=== PATIENT | female | born 2000 | race Caucasian/White ===

== ENCOUNTER 2020-12-05 12:45 | Inpatient (IN) | payer MEDICAID ==
[~2020-12-05] VITALS: Ht 152.4 cm; Wt 83.0 kg
[2020-12-05] VITALS (20 sets, daily range): BP systolic 106–127; BP diastolic 61–91
[2020-12-05] MEDS ORDERED: MINERAL OIL CONCENTRATE 99.9% 15 ML UDC TOP PRN (13:15)
[2020-12-05] MEDS ORDERED: CATHETER FLUSH 10 ML SYR IV SCH (14:00)
[2020-12-05] MEDS: D5 LR IV SOLUTION 1,000 ML IV SCH ×2 (14:03→19:14)
[2020-12-05 14:12] LABS: ALBUMIN 3.4 GM/DL (3.2-4.5); POTASSIUM 3.7 MMOL/L (3.6-5.0)
[2020-12-05 14:13] LABS: CALCIUM 9.1 MG/DL (8.5-10.1)
[2020-12-05 14:15] LABS: TOTAL PROTEIN 6.3 GM/DL (6.4-8.2)
[2020-12-05 14:16] LABS: BASOPHILS % (AUTO) 0 % (0-10); BILIRUBIN,TOTAL 0.4 MG/DL (0.1-1.0); EOSINOPHILS # (AUTO) 0.1 10^3/uL (0.0-0.3); EOSINOPHILS % (AUTO) 2 % (0-10); HEMATOCRIT 39 % (35-52); LYMPHOCYTES # (AUTO) 1.8 10^3/uL (1.0-4.0); LYMPHOCYTES % (AUTO) 23 % (12-44); MEAN CORPUSCULAR HEMOGLOBIN 32 pg (25-34); MEAN CORPUSCULAR HGB CONC 33 g/dL (32-36); MEAN CORPUSCULAR VOLUME 95 fL (80-99); MEAN PLATELET VOLUME 10.7 fL (9.0-12.2); MONOCYTES # (AUTO) 0.6 10^3/uL (0.0-1.0); MONOCYTES % (AUTO) 8 % (0-12); NEUTROPHILS # (AUTO) 5.1 10^3/uL (1.8-7.8); NEUTROPHILS % (AUTO) 66 % (42-75); PLATELET COUNT 193 10^3/uL (130-400); WHITE BLOOD COUNT 7.8 10^3/uL (4.3-11.0)
[2020-12-05 14:18] LABS: CREATININE SERUM 0.59 MG/DL (0.60-1.30)
[2020-12-05 14:19] LABS: URINE CREATININE FOR RATIO 21 MG/DL (30-125); URINE PROTEIN FOR RATIO ONLY < 6 MG/DL (6-12)
[2020-12-05 14:21] LABS: URIC ACID 5.1 MG/DL (2.6-7.2)
--- NOTE | 2020-12-05 14:24 | History & Physical-OB ---
OB - Chief Complaint & HPI Date/Time Date of Admission: Date of Admission: Dec 05, 2020 at 12:45 Date seen by a Provider: Dec 05, 2020 Time Seen by a Provider: 13:30 Chief Complaint/History OB-Reason for Admission/Chief: Obstetrical Complication Hx : 1 Hx Para: 0 Expected Date of Delivery: Dec 19, 2020 Gestational Age in Weeks: 38 Gestational Age in Days: 0 Indication for induction: medical complication History of Labs A pos, antibody neg, RNI. HIV/HepB/RPR NR. GC/chlamydia neg. 1 hour glucola elevated, 3 hour normal. GBS negative. Other G1 at 38 weeks, seen in office on 12/03 and had swelling and increased blood pressure (134/90, also had BP 122/90 at visit 11/12), preeclampsia labs drawn and were unremarkable except for urine protein/creatinine ratio 0.357, pt brought back to clinic at time of results and had BP 142/90, discussed diagnosis of preeclampsia and sent to L&D for induction. Allergies and Home Medications Allergies Coded Allergies: No Known Drug Allergies (Unverified , 12/05/20) Home Medications Cetirizine HCl 10 Mg Tablet, 10 MG PO DAILY, (Reported) Last Action: New Order Famotidine 20 Mg Tablet, 20 MG PO HS PRN for HEARTBURN, (Reported) Last Action: New Order Patient Home Medication List Home Medication List Reviewed: Yes OB - History Hx of Present Ultrasounds: Abnormal US findings (mild prominence of left renal pelvis, followed and stable below 10 mm) Obstetrical Complications: Pre-eclampsia Information Induced Hypertension: Yes Maternal Gestational Diabetes: No Hemorrhage: No Obstetrical History Hx : 1 Hx Para: 0 Hx # Term Pregnancies: 0 Hx # Pregnancies: 0 Number of Living Children: 0 Hx Termination: No Hx Multiple Gestation: No Hx Ectopic : No Hx Stillbirth: No Hx Complication: Yes Hx Induced Hypertens: Yes Hx Maternal Gestational Diabet: No Hx Hemorrhage: No Delivery History Hx Dystocia: No Hx Forceps Assisted Delivery: No Hx Vacuum Extraction Assisted: No Hx Placenta Abnormality: No Hx Distress: No Hx Large For Gestational Age I: No Hx Small for Gestational Age I: No Hx Section: No Hx Vaginal Delivery Post C-Sec: No Hx Blood Disorders: No Adverse Rxn to Tranfusion: No Patient Past Medical History PMHx: Denies SurgHx: Denies Social History/Family History Alcohol Use: Denies Use Recreational Drug Use: No (previous marijuana use before ) Smoking Cessation: Never smoker Immunizations Tetanus Booster (TDap): Less than 5yrs Rubella: not immune RPR/VDRL: Negative GBS Status: Negative HBsAG: Negative OB - Admission Exam Physical Exam HEENT: NCAT Abdomen: Non tender Extremities: Edema Cervical Dilatation: 1cm Effacement: 0% Station: -3 Membranes: Intact Heart Rate: 140's Accelerations: Accelerations Present Decelerations: No Decelerations Short Term Variability: Present Contractions on Admission: None Phillips Scoring Tool (Modified) Dilation (cm): 1-2cm (1) Effacement (%): 0-30% (0) Descent/Station: -3 (0) Cervix Consistency: Medium(1) Cervix Position: Anterior (2) Add 1 point for: Pre-eclampsia (1) Subtract 1 point for: Nulliparity (-1) Phillips Score: 4 Labs Laboratory Tests Test 12/05/20 13:20 12/05/20 13:55 Range/Units Sodium Level 140 135-145 MMOL/L Potassium Level 3.7 3.6-5.0 MMOL/L Chloride Level 109 H 98-107 MMOL/L Glucose Level 83 70-105 MG/DL Calcium Level 9.1 8.5-10.1 MG/DL Corrected Calcium 9.6 8.5-10.1 MG/DL Total Protein 6.3 L 6.4-8.2 GM/DL Albumin 3.4 3.2-4.5 GM/DL OB - Assessment/Plan/Diagnosis Assessment Admission Dx Term intrauterine 38 weeks gestation Preeclampsia without severe features GBS neg Rubella non-immune Admission Status: Inpatient Order (span 2 midnights) Reason for Inpatient Admission: Induction, labor, delivery and course Plan Plan: Induction Induction Method: per Misoprostol Protocol Problems: (1) Preeclampsia Qualifiers: Qualified Codes: O14.93 - Unspecified pre-eclampsia, third trimester KIRSTIN MARTINO MD Dec 05, 2020 14:24
[2020-12-05] MEDS ORDERED: CETI10TA49 PO (14:29)
[2020-12-05] MEDS ORDERED: PREN-142 PO (14:29)
[2020-12-05] MEDS ORDERED: FAMO-119 PO (14:29)
[2020-12-05] MEDS ORDERED: fentaNYL 2 mcg/ml BUPIVA 0.125 100 ML ONE (22:19)
[2020-12-05] MEDS ORDERED: BUPIVACAINE 0.25% 30 ML (SENSORCAINE) VIAL ONE (22:35)
[2020-12-05] MEDS ORDERED: fentaNYL INJ 100 MCG/2 ML AMP ONE (22:35)
[2020-12-05] MEDS: EPIDURAL (fentaNYL 2 MCG/ML BUPIVA 0.125%)100 ML BAG EPI PRN (23:11)
[2020-12-05] MEDS ORDERED: LACTATED RINGERS 1,000 ML IV SCH (23:15)
[2020-12-05] MEDS ORDERED: METOCLOPRAMIDE INJ 10 MG/2 ML (REGLAN) IV PRN (23:15)
[2020-12-05] MEDS ORDERED: NALOXONE 0.4 MG/ML 1 ML (NARCAN) VIAL IV PRN ×2 (23:15)
[2020-12-05] MEDS ORDERED: ONDANSETRON 4 MG/2 ML (SDV) Z0FRAN IV PRN (23:15)
[2020-12-05] MEDS ORDERED: diphenhydrAMINE 50 MG/ML INJ (BENADRYL) IV PRN (23:15)
[2020-12-06] VITALS (62 sets, daily range): BP systolic 98–133; BP diastolic 55–96
[2020-12-06] MEDS: D5 LR IV SOLUTION 1,000 ML IV SCH ×2 (03:11→11:07)
[2020-12-06] MEDS: EPIDURAL (fentaNYL 2 MCG/ML BUPIVA 0.125%)100 ML BAG EPI PRN (07:59)
[2020-12-06] MEDS ORDERED: LIDOCAINE PF 2% 5 ML (XYLOCAINE) VIAL ONE (10:44)
[2020-12-06] MEDS ORDERED: BUPIVACAINE 0.25% 30 ML (SENSORCAINE) VIAL ONE (11:00)
[2020-12-06] MEDS ORDERED: OXYTOCIN PRE-MIX DRIP 500 ML IV ONE (12:59)
[2020-12-06] MEDS ORDERED: LIDOCAINE/EPI 2% 1:200,00 (XYLOCAINE) 20 ML VIAL ONE (13:01)
--- NOTE | 2020-12-06 14:32 | OB Labor & Delivery Record ---
Vag Delivery Note Vag Delivery Note Date of Delivery: 12/06/20 Preoperative Diagnosis: April Hlal is a (20 /Para 1 / 0, Gestational Age (wks)38with 1 day Postoperative Diagnosis: Same Surgeon: KIRSTIN MARTINO Anesthesia: Epidural Delivery Type: Findings: Viable male , apgars 8/9, weight 7#5 Lacerations: bilateral periurethral, left labial, second degree perineal Intact placenta with 3 vessel cord. Nuchal cord x 1 easily reduced, no body cord or shoulder dystocia Estimated Blood Loss: 250 ml Complications: None Condition: Stable Description of Procedure: The patient is a 20 year old female who presented with preeclampsia. She was admitted and informed consent was obtained and induction of labor begun. Her labor course was unremarkable She progressed to complete dilatation and began to push. She was then set up for delivery. The infant's head was delivered atraumatically in the TRISTNA position. Nuchal x 1 easily reduced, the shoulders and remainder of the 's body were then delivered without difficulty. Upon delivery, the infant was placed on maternal abdomen. The cord was doubly clamped and cut and the was handed off to the pediatric staff. An intact placenta with 3- vessel cord delivered via Andre and there was found to be minimal bleeding.~ Vigorous fundal massage was performed and the fundus was found to be firm. IV oxytocin was given. Examination of the vagina and perineum revealed a second degree perineal laceration repaired in the usual fashion with 3-0 vicryl suture. The right periurethral laceration was repaired in simple running fashion with 3- 0 rapide and the left labial (through skin) was repaired in simple running fashion with 3-0 rapide. Following the repair, sponge, instrument and needle counts were correct. Mom and baby were both in stable condition in the labor suite. Vitals - Labs Vital Signs - I&O Vital Signs Date Time Temp Pulse Resp B/P (MAP) Pulse Ox O2 Delivery O2 Flow Rate FiO2 12/06/20 11:55 88 18 121/76 (91) Room Air 12/06/20 11:40 88 18 109/70 (83) Room Air 12/06/20 11:20 97 18 109/70 (83) Room Air 12/06/20 11:05 37.8 87 20 111/69 (83) Room Air 12/06/20 10:50 84 18 111/71 (84) Room Air 12/06/20 10:35 84 18 107/66 (80) Room Air 12/06/20 10:20 92 18 111/68 (82) Room Air 12/06/20 10:05 86 18 111/59 (76) Room Air 12/06/20 09:50 86 18 114/59 (77) Room Air 12/06/20 09:35 85 18 111/68 (82) Room Air 12/06/20 09:20 83 18 110/67 (81) Room Air 12/06/20 09:05 93 18 116/61 (79) Room Air 12/06/20 08:50 96 18 111/62 (78) Room Air 12/06/20 08:35 87 18 108/60 (76) Room Air 12/06/20 08:25 90 18 110/60 (77) Room Air 12/06/20 08:10 80 18 104/58 (73) Room Air 12/06/20 07:50 76 18 101/57 (72) Room Air 12/06/20 07:40 82 18 107/59 (75) Room Air 12/06/20 07:20 86 18 102/58 (73) Room Air 12/06/20 07:00 87 18 98/56 (70) Room Air 12/06/20 06:45 94 18 114/64 (81) Room Air 12/06/20 06:30 82 18 109/57 (74) Non Rebreather 15.00 12/06/20 06:15 89 18 112/63 (79) Non Rebreather 15.00 12/06/20 06:00 85 18 111/67 (82) Non Rebreather 15.00 12/06/20 05:45 95 18 108/65 (79) Non Rebreather 15.00 12/06/20 05:30 97 18 108/60 (76) Room Air 12/06/20 05:15 96 18 102/58 (73) Room Air 12/06/20 05:00 37.7 95 18 106/56 (73) Room Air 12/06/20 04:45 93 18 106/55 (72) Room Air 12/06/20 04:30 87 18 107/55 (72) Room Air 12/06/20 04:15 86 18 105/57 (73) Room Air 12/06/20 04:00 86 18 106/55 (72) Room Air 12/06/20 03:45 85 18 103/59 (74) Room Air 12/06/20 03:30 89 18 111/65 (80) Room Air 12/06/20 03:15 82 18 111/56 (74) 96 Room Air 12/06/20 03:00 84 18 108/60 (76) 95 Room Air 12/06/20 02:45 90 18 105/59 (74) 96 Room Air 12/06/20 02:30 85 18 107/57 (74) 96 Room Air 12/06/20 02:15 93 18 105/60 (75) 96 Room Air 12/06/20 02:00 83 18 107/60 (76) 96 Room Air 12/06/20 01:45 85 18 108/61 (77) 96 Room Air 12/06/20 01:30 85 18 109/60 (76) 96 Room Air 12/06/20 01:15 82 18 106/59 (75) 97 Room Air 12/06/20 01:00 83 18 111/62 (78) 97 Room Air 12/06/20 00:45 80 18 109/62 (78) 96 Room Air 12/06/20 00:30 84 18 110/60 (77) 97 Room Air 12/06/20 00:15 83 18 109/65 (80) 97 Room Air 12/06/20 00:00 85 18 111/64 (80) 97 Room Air 12/05/20 23:45 83 18 115/66 (82) 97 Room Air 12/05/20 23:30 85 18 121/73 (89) 99 Room Air 12/05/20 23:20 89 18 117/69 (85) 98 Room Air 12/05/20 23:15 85 18 124/71 (88) 99 Room Air 12/05/20 23:10 89 18 118/66 (83) 97 Room Air 12/05/20 23:05 85 18 115/64 (81) 97 Room Air 12/05/20 23:01 90 18 115/61 (79) 98 Room Air 12/05/20 23:00 37.5 101 18 121/73 (89) Room Air 12/05/20 22:57 87 18 125/73 (90) 99 Room Air 12/05/20 22:52 88 18 122/73 (89) 98 Room Air 12/05/20 22:49 97 18 121/80 (94) 100 Room Air 12/05/20 22:46 98 18 124/81 (95) 99 Room Air 12/05/20 22:43 105 18 121/91 (101) 99 Room Air 12/05/20 22:40 102 18 115/85 (95) 99 Room Air 12/05/20 22:00 114 18 127/79 (95) Room Air 12/05/20 21:00 93 18 110/70 (83) Room Air 12/05/20 20:00 106 18 116/82 (93) Room Air 12/05/20 18:01 105 20 106/74 (85) Room Air 12/05/20 17:01 37.1 104 20 118/77 (91) Room Air I & O 12/06/20 07:00 Intake Total 1000 ml Balance 1000 ml KIRSTIN MARTINO MD Dec 06, 2020 14:32
[2020-12-06] MEDS ORDERED: BENZOCAINE/MENTHOL (DERMOPLAST) 56 ML CAN TP ONE (15:30)
[2020-12-06] MEDS ORDERED: ACETAMINOPHEN 500 MG TAB (TYLENOL) PO PRN (16:30)
[2020-12-06] MEDS ORDERED: BENZOCAINE/MENTHOL (DERMOPLAST) 56 ML CAN TP PRN (16:30)
[2020-12-06] MEDS ORDERED: WITCH HAZEL(TUCKS) 40 EA JAR TOP PRN (16:30)
[2020-12-06] MEDS ORDERED: MEASLES,MUMPS,RUBELLA 1 EA INJ SQ ONE (16:30)
[2020-12-06] MEDS ORDERED: OXYTOCIN PRE-MIX DRIP 500 ML IV SCH (16:30)
[2020-12-06] MEDS: IBUPROFEN 600 MG (MOTRIN) TAB PO SCH (17:17)
[2020-12-06] MEDS: DOCUSATE SODIUM 100 MG (COLACE) CAP PO SCH (19:52)
[2020-12-06] MEDS ORDERED: CATHETER FLUSH 10 ML SYR IV SCH (22:00)
[2020-12-07 00:44] VITALS: BP 112/72
[2020-12-07] MEDS: IBUPROFEN 600 MG (MOTRIN) TAB PO SCH ×5 (00:46→23:33)
[2020-12-07 04:10] VITALS: BP 118/60
[2020-12-07 06:40] LABS: BASOPHILS % (AUTO) 0 % (0-10); EOSINOPHILS # (AUTO) 0.2 10^3/uL (0.0-0.3); EOSINOPHILS % (AUTO) 2 % (0-10); HEMATOCRIT 36 % (35-52); HEMOGLOBIN 11.8 g/dL (11.5-16.0); LYMPHOCYTES # (AUTO) 2.9 10^3/uL (1.0-4.0); LYMPHOCYTES % (AUTO) 22 % (12-44); MEAN CORPUSCULAR HEMOGLOBIN 31 pg (25-34); MEAN CORPUSCULAR HGB CONC 33 g/dL (32-36); MEAN CORPUSCULAR VOLUME 96 fL (80-99); MEAN PLATELET VOLUME 10.3 fL (9.0-12.2); MONOCYTES % (AUTO) 7 % (0-12); NEUTROPHILS % (AUTO) 68 % (42-75); PLATELET COUNT 180 10^3/uL (130-400); WHITE BLOOD COUNT 13.1 10^3/uL (4.3-11.0)
[2020-12-07] MEDS: DOCUSATE SODIUM 100 MG (COLACE) CAP PO SCH ×2 (10:05→23:33)
[2020-12-07 10:08] VITALS: BP 119/72
--- NOTE | 2020-12-07 12:20 | Anesthesia-Regional Post-Op ---
Regional Patient Condition Mental Status: Alert, Oriented x3 Circulation: Same as Pre-Op Headache: Absent Sensation: Full Recovery Motor Block: Absent Post Op Complications Complications None Follow Up Care/Instructions Patient Instructions None needed. Anesthesia/Patient Condition Patient is doing well, no complaints, stable vital signs, no apparent adverse anesthesia problems. No complications reported per nursing. KULWANT RODRIGUEZ CRNA Dec 07, 2020 12:20
--- NOTE | 2020-12-07 13:02 | Progress Note ---
Subjective Subjective/Events-last exam Afebrile, feeling pretty well. Admits shortness of breath when she first stands up that does not persist. going well. Denies dizziness. Objective Exam Last Set of Vital Signs Vital Signs Date Time Temp Pulse Resp B/P (MAP) Pulse Ox O2 Delivery O2 Flow Rate FiO2 12/07/20 04:10 36.1 96 18 118/60 (79) 98 Room Air 12/06/20 06:30 15.00 Capillary Refill : I&O Intake and Output 12/07/20 00:00 Intake Total 350 ml Output Total 300 ml Balance 50 ml Intake IV Total 350 ml Output Urine Total 300 ml General: Alert, No Acute Distress Lungs: Clear to Auscultation, Normal Air Movement Heart: Regular Rate Extremities: Other (1+ pitting edema to knees) Neuro: Normal Speech Psych/Mental Status: Mood NL Results/Procedures Lab Laboratory Tests 12/07/20 06:30: White Blood Count 13.1H, Red Blood Count 3.76L, Hemoglobin 11.8, Hematocrit 36, Mean Corpuscular Volume 96, Mean Corpuscular Hemoglobin 31, Mean Corpuscular Hemoglobin Concent 33, Red Cell Distribution Width 12.7, Platelet Count 180, Mean Platelet Volume 10.3, Immature Granulocyte % (Auto) 1, Neutrophils (%) (Auto) 68, Lymphocytes (%) (Auto) 22, Monocytes (%) (Auto) 7, Eosinophils (%) (Auto) 2, Basophils (%) (Auto) 0, Neutrophils # (Auto) 9.0H, Lymphocytes # (Auto) 2.9, Monocytes # (Auto) 1.0, Eosinophils # (Auto) 0.2, Basophils # (Auto) 0.0, Immature Granulocyte # (Auto) 0.1 Assessment/Plan Assessment/Plan (1) Spontaneous vaginal delivery Status: Acute Assessment & Plan: Stable with no anemia, routine care. (2) Preeclampsia Status: Resolved Qualifiers: Qualified Codes: O14.93 - Unspecified pre-eclampsia, third trimester (3) COVID-19 vaccination declined Status: Acute Assessment & Plan: Discussed risks and benefits, she is still considering, but not ready at this time. KIRSTIN MARTINO MD Dec 07, 2020 13:02
[2020-12-07 16:10] VITALS: BP 116/75
[2020-12-07 23:33] VITALS: BP 116/67
[2020-12-08 06:11] VITALS: BP 120/81
[2020-12-08] MEDS: IBUPROFEN 600 MG (MOTRIN) TAB PO SCH ×2 (06:11→12:15)
[2020-12-08] MEDS ORDERED: IBUP-844 PO (08:10)
[2020-12-08 08:51] VITALS: BP 130/85
[2020-12-08] MEDS: DOCUSATE SODIUM 100 MG (COLACE) CAP PO SCH (08:52)
--- NOTE | 2020-12-08 10:34 | Discharge Summary ---
Discharge Summary Hospital Course Problems/Diagnosis: (1) Spontaneous vaginal delivery Status: Acute Assessment & Plan: Stable with no anemia, routine care. (2) Preeclampsia Status: Resolved Resolution Date/Time: 12/07/20 @ 13:01 Qualifiers: Qualified Codes: O14.93 - Unspecified pre-eclampsia, third trimester (3) COVID-19 vaccination declined Status: Acute Assessment & Plan: Discussed risks and benefits, she is still considering, but not ready at this time. Hospital Course Date of Admission: Dec 05, 2020 at 12:45 Admission Diagnosis : Family Physician/Provider: Date of Discharge: 12/08/20 Discharge Diagnosis: See problem list Hospital Course: See problem list Labs and Pending Lab Test: Home Meds Active Ibu (Ibuprofen) 600 Mg Tablet 600 Mg PO Q6HR PRN Reported Zyrtec (Cetirizine HCl) 10 Mg Tablet 10 Mg PO DAILY Vitamin Tablet ( Vit No.124/Iron/FA) 1 Each Tablet 1 Each PO Assessment/Pt DC Instructions Follow up with Dr. Perrin in 6 weeks for visit. Discharge Diet: No Restrictions Activity as Tolerated: Yes (avoid strenuous activity x 6 weeks) Discharge Physical Examination Allergies: Coded Allergies: No Known Drug Allergies (Unverified , 12/05/20) General Appearance: No Apparent Distress, WD/WN Respiratory: Lungs Clear, Normal Breath Sounds Cardiovascular: Regular Rate, Rhythm, No Murmur Extremity: Pedal Edema Neurologic/Psychiatric: Alert, Normal Mood/Affect KIRSTIN PERRIN MD Dec 08, 2020 10:34
[2020-12-08] MEDS ORDERED: MEASLES,MUMPS,RUBELLA 1 EA INJ ONE (12:13)
== END 2020-12-08 14:05 | disposition home or self-care (01) | DRG 807 ==
LOC: LDRP 12:45
PROVIDERS: ADMIT Family Medicine; ATTEND Family Medicine
PROC: 10E0XZZ Delivery of Products of Conception, External Approach (ICD-10-PCS; principal; 2020-12-06)
PROC: 0KQM0ZZ Repair Perineum Muscle, Open Approach (ICD-10-PCS; 2020-12-06)
PROC: 0UQMXZZ Repair Vulva, External Approach (ICD-10-PCS; 2020-12-06)
PROC: 3E0DXGC Introduction of Other Therapeutic Substance into Mouth and Pharynx, External Approach (ICD-10-PCS; 2020-12-06)
DX: O14.94 Unspecified pre-eclampsia, complicating childbirth (principal); Z37.0 Single live birth; Z3A.38 38 weeks gestation of pregnancy; O69.81X0 Labor and delivery complicated by cord around neck, without compression, not applicable or unspecified; O70.1 Second degree perineal laceration during delivery; O71.82 Other specified trauma to perineum and vulva; Z23 Encounter for immunization
CPT/HCPCS: 36415; 80053; 82570; 84156; 84550; 85025; 86850; 86900; 86901; 90707

== ENCOUNTER 2023-02-28 14:04 | Inpatient (IN) | payer BC ==
[2023-02-28] VITALS (38 sets, daily range): BP systolic 87–128; BP diastolic 51–81
[~2023-02-28] VITALS: Ht 152.4 cm; Wt 73.0 kg
[~2023-02-28 14:04] MED LIST: CETI10TA49 PO; FAMO-119 PO; IBUP-844 PO; PREN-142 PO
[2023-02-28 15:06] LABS: BACTERIA,URINE TRACE /HPF; BILIRUBIN,URINE NEGATIVE (NEGATIVE); CLARITY,URINE CLEAR; COLOR,URINE YELLOW; GLUCOSE, URINE (UA) NEGATIVE (NEGATIVE); KETONES,URINE 2+ (NEGATIVE); LEUKOCYTE ESTERASE ,URINE NEGATIVE (NEGATIVE); NITRITE,URINE NEGATIVE (NEGATIVE); PROTEIN,URINE NEGATIVE (NEGATIVE); SQUAMOUS EPITHELIAL CELL,UR RARE /HPF; WBC,URINE RARE /HPF
[2023-02-28] MEDS: LACTATED RINGERS 1,000 ML 1,000 ML IV SCH ×2 (15:51→18:32)
[2023-02-28 15:58] LABS: BASOPHILS % (AUTO) 0 % (0-10); EOSINOPHILS # (AUTO) 0.1 10^3/uL (0.0-0.3); EOSINOPHILS % (AUTO) 1 % (0-10); HEMATOCRIT 38 % (35-52); HEMOGLOBIN 12.8 g/dL (11.5-16.0); LYMPHOCYTES # (AUTO) 1.9 X 10^3 (1.0-4.0); LYMPHOCYTES % (AUTO) 20 % (12-44); MEAN CORPUSCULAR HEMOGLOBIN 32 pg (25-34); MEAN CORPUSCULAR HGB CONC 34 g/dL (32-36); MEAN CORPUSCULAR VOLUME 95 fL (80-99); MEAN PLATELET VOLUME 10.8 fL (9.0-12.2); MONOCYTES # (AUTO) 0.7 X 10^3 (0.0-1.0); MONOCYTES % (AUTO) 7 % (0-12); NEUTROPHILS # (AUTO) 6.8 X 10^3 (1.8-7.8); NEUTROPHILS % (AUTO) 71 % (42-75); PLATELET COUNT 178 10^3/uL (130-400); WHITE BLOOD COUNT 9.6 10^3/uL (4.3-11.0)
--- NOTE | 2023-02-28 17:38 | History & Physical-OB ---
OB - Chief Complaint & HPI Date/Time Date of Admission: Date of Admission: Feb 28, 2023 Date seen by a Provider: Feb 28, 2023 Time Seen by a Provider: 17:05 Chief Complaint/History OB-Reason for Admission/Chief: Hx : 2 Hx Para: 1 Expected Date of Delivery: Mar 14, 2023 Gestational Age in Weeks: 38 Gestational Age in Days: 0 Other reason for admission: at 38w0d came to Labor and Delivery due to contractions starting last night, worse this morning. On arrival, noted to have tachycardia with minimal variability. She reports normal movement, no leaking fluid or bleeding. History of Labs A pos, antibody neg, RI. HIV/hepB/HepC/RPR NR. GC/chlamydia neg. 1 hr glucola neg. GBS pos. Allergies and Home Medications Allergies Coded Allergies: No Known Drug Allergies (Unverified , 12/05/20) Patient Home Medication List Home Medication List Reviewed: Yes Cetirizine HCl (Cetirizine HCl) 10 Mg Tablet, 10 MG PO, (Reported) Entered as Reported by: KIRSTIN MARTINO on 03/01/23124 Last Action: Reviewed Famotidine (Acid Intervention Analyst (FAMOTIDINE)) 20 Mg Tablet, 20 MG PO HS PRN for gerd, (Reported) Entered as Reported by: KIRSTIN MARTINO on 03/01/23124 Last Action: Reviewed Vit No.124/Iron/FA ( Vitamin Tablet) 1 Each Tablet, 1 EACH PO, (Reported) Entered as Reported by: KIRSTIN MARTINO on 12/05/20 142 Last Action: Reviewed Discontinued Medications Cetirizine HCl (Zyrtec) 10 Mg Tablet, 10 MG PO DAILY, (Reported) Discontinued Reason: No Longer Taking Entered as Reported by: KIRSTIN MARTINO on 12/05/20 142 Last Action: Discontinued Ibuprofen (Ibu) 600 Mg Tablet, 600 MG PO Q6HR PRN for PAIN-MODERATE (5-7) Prescribed by: KIRSTIN MARTINO on 12/08/20 0810 Last Action: Discontinued OB - History Hx of Present Care: Yes Ultrasounds: Normal mid trimester US Obstetrical Complications: None Obstetrical History Hx : 2 Hx Para: 1 Hx # Term Pregnancies: 1 Hx # Pregnancies: 0 Number of Living Children: 1 Hx Termination: No Hx Total # of Abortions (Spona: 0 Hx Multiple Gestation: No Hx Ectopic : No Hx Stillbirth: No Hx Complication: Yes Hx Induced Hypertens: Yes Hx Maternal Gestational Diabet: No Hx Hemorrhage: No Delivery History Hx Dystocia: No Hx Forceps Assisted Delivery: No Hx Vacuum Extraction Assisted: No Hx Placenta Abnormality: No Hx Distress: No Hx Large For Gestational Age I: No Hx Small for Gestational Age I: No Hx Section: No Hx Vaginal Delivery Post C-Sec: No Hx Blood Disorders: No Adverse Rxn to Tranfusion: No Risk Variables Obstetrical Risk Variables: Not POA Anemia, Not POA Asthma, Not POA Autoimmune Disease, Not POA Bariatric Surgery, Not POA Bleeding Disorder, Not POA BMI >= 40, Not POA Cardiac Disease, Not POA Economic Housing Instabil, Not POA Gastrointestinal Disease, Not POA Gestational Diabetes, Not POA HIV, Not POA Hypertension, Not POA 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 Anticoagulant U, Not POA Mental Health Disorder, Not POA Multiple , Not POA Neuromuscular Disease, Not POA Obstetrical VTE, Not POA Other Preeclampsia, Not POA Placenta Previa, Not POA Placental Abruption, Not POA Placenta Accreta Spectrum, Not POA Preexisting Diabetes, Not POA , Not POA Previous , Not POA Pulmonary Hypertension, Not POA Renal Disease, Not POA Severe Preeclampsia, Not POA Substance Abuse, Not POA Thyrotoxicosis Patient Past Medical History PMHx: Denies SurgHx: Denies Social History/Family History Alcohol Use: Denies Use Recreational Drug Use: No Smoking Cessation: Never smoker Immunizations Influenza Vaccine Up-to-Date: No; Not Current Hepatitis A: Yes Hepatitis B: Yes Tetanus Booster (TDap): Less than 5yrs (12/31/22) Rubella: immune RPR/VDRL: Negative GBS Status: Positive HBsAG: Negative OB - Admission Exam Physical Exam Vitals: Vital Signs 02/28/23 14:35 Temp 36.9 Pulse 129 Resp 18 B/P (MAP) 120/80 Pulse Ox 98 O2 Delivery Room Air HEENT: NCAT Abdomen: Non tender Extremities: Normal Cervical Dilatation: other (4.5) Effacement: 25% Station: -3 Heart Rate: 150's Accelerations: No Accelerations Decelerations: No Decelerations Short Term Variability: Present 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 Variability: Average (6-25) Contractions on Admission: < 5 Minutes Apart Labs Laboratory Tests Test 02/28/23 14:20 02/28/23 15:40 Range/Units Urine Color YELLOW Urine Clarity CLEAR Urine pH 6.0 5-9 Urine Specific [place] 1.015 L 1.016-1.022 Urine Protein NEGATIVE NEGATIVE Urine Glucose (UA) NEGATIVE NEGATIVE Urine Ketones 2+ H NEGATIVE Urine Nitrite NEGATIVE NEGATIVE Urine Bilirubin NEGATIVE NEGATIVE Urine Urobilinogen 0.2 < = 1.0 MG/DL Urine Leukocyte Esterase NEGATIVE NEGATIVE Urine RBC (Auto) NEGATIVE NEGATIVE Urine RBC NONE /HPF Urine WBC RARE /HPF Urine Squamous Epithelial Cells RARE /HPF Urine Crystals NONE /LPF Urine Bacteria TRACE /HPF Urine Casts NONE /LPF Urine Mucus NEGATIVE /LPF Urine Culture Indicated CULTURE PENDING White Blood Count 9.6 4.3-11.0 10^3/uL Red Blood Count 3.95 3.80-5.11 10^6/uL Hemoglobin 12.8 11.5-16.0 g/dL Hematocrit 38 35-52 % Mean Corpuscular Volume 95 80-99 fL Mean Corpuscular Hemoglobin 32 25-34 pg Mean Corpuscular Hemoglobin Concent 34 32-36 g/dL Red Cell Distribution Width 12.7 10.0-14.5 % Platelet Count 178 130-400 10^3/uL Mean Platelet Volume 10.8 9.0-12.2 fL Immature Granulocyte % (Auto) 1 % Neutrophils (%) (Auto) 71 42-75 % Lymphocytes (%) (Auto) 20 12-44 % Monocytes (%) (Auto) 7 0-12 % Eosinophils (%) (Auto) 1 0-10 % Basophils (%) (Auto) 0 0-10 % Neutrophils # (Auto) 6.8 1.8-7.8 X 10^3 Lymphocytes # (Auto) 1.9 1.0-4.0 X 10^3 Monocytes # (Auto) 0.7 0.0-1.0 X 10^3 Eosinophils # (Auto) 0.1 0.0-0.3 10^3/uL Basophils # (Auto) 0.0 0.0-0.1 10^3/uL Immature Granulocyte # (Auto) 0.1 0.0-0.1 10^3/uL OB - Assessment/Plan/Diagnosis Assessment Admission Dx Term intrauterine at 38w0d GBS positive Category II heart rate tracing (intermittent) Early labor Admission Status: Inpatient Order (span 2 midnights) Reason for Inpatient Admission: Labor, delivery and course Plan Other Plan Given category II tracing a significant portion of the time of observation, with regular contractions and cervical change consistent with early labor, AROM done at time of exam (clear fluid) to augment early labor and facilitate delivery. Ampicillin started for GBS positive status. KIRSTIN MARTINO MD Feb 28, 2023 17:38
[2023-02-28] MEDS ORDERED: AMPICILLIN (IV) 2,000 MG in NS (IVPB) 50 ML 50 ML IV SCH (17:39)
[2023-02-28] MEDS ORDERED: LACTATED RINGERS 1,000 ML 500 ML IV PRN (17:45)
[2023-02-28] MEDS ORDERED: MINERAL OIL 30 ML UDC TOP PRN (17:45)
[2023-02-28] MEDS ORDERED: D5 LR 1,000 ML IV SOLN 1,000 ML IV SCH (17:45)
[2023-02-28 17:57] LABS: BASOPHILS % (AUTO) 0 % (0-10); EOSINOPHILS # (AUTO) 0.1 10^3/uL (0.0-0.3); EOSINOPHILS % (AUTO) 1 % (0-10); HEMATOCRIT 39 % (35-52); HEMOGLOBIN 13.1 g/dL (11.5-16.0); LYMPHOCYTES % (AUTO) 20 % (12-44); MEAN CORPUSCULAR HEMOGLOBIN 32 pg (25-34); MEAN CORPUSCULAR HGB CONC 34 g/dL (32-36); MEAN CORPUSCULAR VOLUME 94 fL (80-99); MEAN PLATELET VOLUME 11.5 fL (9.0-12.2); MONOCYTES # (AUTO) 0.7 10^3/uL (0.0-1.0); MONOCYTES % (AUTO) 7 % (0-12); NEUTROPHILS # (AUTO) 7.1 10^3/uL (1.8-7.8); NEUTROPHILS % (AUTO) 71 % (42-75); PLATELET COUNT 187 10^3/uL (130-400)
[2023-02-28] MEDS ORDERED: fentaNYL 2 mcg/ml BUPIVA 0.125 100 ML ONE (19:58)
[2023-02-28] MEDS ORDERED: AMPICILLIN (IV) 1,000 MG in NS (IVPB) 50 ML 50 ML IV SCH (21:45)
[2023-02-28] MEDS ORDERED: CATHETER FLUSH 10 ML SYR IV SCH (22:00)
[2023-02-28] MEDS ORDERED: fentaNYL 2 mcg/ml BUPIVA 0.125 100 ML EPI SCH (23:00)
[2023-02-28] MEDS ORDERED: LACTATED RINGERS 1,000 ML 1,000 ML IV SCH (23:00)
[2023-02-28] MEDS ORDERED: NALOXONE 0.4 MG/ML 1 ML VIAL IV PRN ×2 (23:00)
[2023-02-28] MEDS ORDERED: METOCLOPRAMIDE INJ 10 MG/2 ML IV PRN (23:00)
[2023-02-28] MEDS ORDERED: diphenhydrAMINE INJ 50 MG/ML VIAL IV PRN (23:00)
[2023-02-28] MEDS ORDERED: ONDANSETRON INJECTION 4 MG/2 ML (SDV) IV PRN (23:00)
[2023-02-28] MEDS ORDERED: OXYTOCIN DRIP PRE-MIX 500 ML IV ONE (23:04)
[2023-02-28] MEDS ORDERED: LIDOCAINE 2% w/EPI 1:200,000 20 ML VIAL ONE (23:05)
[2023-03-01] VITALS (18 sets, daily range): BP systolic 101–139; BP diastolic 55–80
--- NOTE | 2023-03-01 01:12 | OB Labor & Delivery Record ---
Vag Delivery Note Vag Delivery Note Date of Delivery: 03/01/23 Preoperative Diagnosis: April Hall is a 22 /Para 2 / 1, Gestational Age (wks)38with 1 day Postoperative Diagnosis: Same Attending Surgeon/Physician: Kirstin Perrin MD Anesthesia: Epidural Delivery Type: Findings: Viable female , apgars 8/9, weight pending Lacerations: Periurethral abrasion Intact placenta with 3 vessel cord. No nuchal cord, body cord or shoulder dystocia Estimated Blood Loss: 100 ml Complications: None Condition: Stable Description of Procedure: The patient is a 22 year old female who presented in early labor. She was admitted and informed consent was obtained. Her labor course was remarkable for augmentation with AROM and intermittent category II tracing. She progressed to complete dilatation and began to push. She was then set up for delivery. The infant's head was delivered atraumatically in the MELISSA position. The shoulders and remainder of the infant's body were then delivered without difficulty. Upon delivery, the was vigorous and placed on maternal chest and the mouth and nares were bulb suctioned. After a delay cord was doubly clamped and cut and the remained on maternal chest. An intact placenta with 3-vessel cord delivered via Andre and there was found to be minimal bleeding.~ Vigorous fundal massage was performed and the fundus was found to be firm. IV oxytocin was given. Examination of the vagina and perineum revealed bilateral periurethral abrasions not requiring repair. Following the delivery, sponge, instrument and needle counts were correct. Mom and baby were both in stable condition in the labor suite. Vitals - Labs Vital Signs - I&O Vital Signs Date Time Temp Pulse Resp B/P (MAP) Pulse Ox O2 Delivery O2 Flow Rate FiO2 02/28/23 18:34 105 18 114/81 (92) 97 Room Air 02/28/23 18:33 37.9 108 18 97 Room Air 02/28/23 14:35 36.9 129 18 120/80 98 Room Air l I & O 03/01/23 06:59 Intake Total 2050 ml Balance 2050 ml Labs Laboratory Tests 02/28/23 14:20: Urine Color YELLOW, Urine Clarity CLEAR, Urine pH 6.0, Urine Specific [place] 1. 015L, Urine Protein NEGATIVE, Urine Glucose (UA) NEGATIVE, Urine Ketones 2+H, Urine Nitrite NEGATIVE, Urine Bilirubin NEGATIVE, Urine Urobilinogen 0.2, Urine Leukocyte Esterase NEGATIVE, Urine RBC (Auto) NEGATIVE, Urine RBC NONE, Urine WBC RARE, Urine Squamous Epithelial Cells RARE, Urine Crystals NONE, Urine Bacteria TRACE, Urine Casts NONE, Urine Mucus NEGATIVE, Urine Culture Indicated CULTURE PENDING 02/28/23 15:40: White Blood Count 10.0, Red Blood Count 4.12, Hemoglobin 13.1, Hematocrit 39, Mean Corpuscular Volume 94, Mean Corpuscular Hemoglobin 32, Mean Corpuscular Hemoglobin Concent 34, Red Cell Distribution Width 12.6, Platelet Count 187, Mean Platelet Volume 11.5, Immature Granulocyte % (Auto) 1, Neutrophils (%) (Auto) 71, Lymphocytes (%) (Auto) 20, Monocytes (%) (Auto) 7, Eosinophils (%) (Auto) 1, Basophils (%) (Auto) 0, Neutrophils # (Auto) 7.1, Lymphocytes # (Auto) 2.0, Monocytes # (Auto) 0.7, Eosinophils # (Auto) 0.1, Basophils # (Auto) 0.0, Immature Granulocyte # (Auto) 0.1, Syphilis Total Antibody Negative KIRSTIN PERRIN MD Mar 01, 2023 01:11
[2023-03-01] MEDS ORDERED: BENZOCAINE/MENTHOL (DERMOPLAST) 56 ML CAN TP PRN (01:15)
[2023-03-01] MEDS ORDERED: WITCH HAZEL(TUCKS) 40 EA JAR TOP PRN (01:15)
[2023-03-01] MEDS ORDERED: OXYTOCIN DRIP PRE-MIX 500 ML IV SCH (01:15)
[2023-03-01] MEDS ORDERED: OXYTOCIN DRIP PRE-MIX 500 ML IV ONE (01:16)
[2023-03-01] MEDS ORDERED: CETI10TA17 PO (01:25)
[2023-03-01] MEDS ORDERED: FAMO-356 PO (01:25)
[2023-03-01] MEDS: IBUPROFEN 600 MG TABLET PO SCH ×3 (05:17→18:00)
[2023-03-01] MEDS ORDERED: CATHETER FLUSH 10 ML SYR IV SCH (06:00)
[2023-03-01] MEDS: DOCUSATE SODIUM 100 MG CAPSULE PO SCH ×2 (09:33→21:28)
[2023-03-01] MEDS: PRENATAL VITAMIN TABLET PO SCH (09:33)
--- NOTE | 2023-03-01 11:03 | Anesthesia-Regional Post-Op ---
Regional Patient Condition Mental Status: Alert, Oriented x3 Circulation: Same as Pre-Op Headache: Absent Sensation: Full Recovery Motor Block: Absent Post Op Complications Complications None Follow Up Care/Instructions Patient Instructions None needed. Anesthesia/Patient Condition Patient is doing well, no complaints, stable vital signs, no apparent adverse anesthesia problems. No complications reported per nursing. AMPARO TURPIN CRNA Mar 01, 2023 11:03
[2023-03-01] MEDS ORDERED: IBUP-844 PO (11:37)
[2023-03-02] MEDS: IBUPROFEN 600 MG TABLET PO SCH ×3 (00:48→12:22)
[2023-03-02 01:00] VITALS: BP 105/66
[2023-03-02 06:24] LABS: BASOPHILS # (AUTO) 0.1 10^3/uL (0.0-0.1); BASOPHILS % (AUTO) 1 % (0-10); EOSINOPHILS # (AUTO) 0.3 10^3/uL (0.0-0.3); EOSINOPHILS % (AUTO) 3 % (0-10); HEMATOCRIT 34 % (35-52); HEMOGLOBIN 11.4 g/dL (11.5-16.0); LYMPHOCYTES # (AUTO) 3.9 10^3/uL (1.0-4.0); LYMPHOCYTES % (AUTO) 39 % (12-44); MEAN CORPUSCULAR HEMOGLOBIN 32 pg (25-34); MEAN CORPUSCULAR HGB CONC 33 g/dL (32-36); MEAN CORPUSCULAR VOLUME 95 fL (80-99); MEAN PLATELET VOLUME 10.9 fL (9.0-12.2); MONOCYTES # (AUTO) 0.8 10^3/uL (0.0-1.0); MONOCYTES % (AUTO) 8 % (0-12); NEUTROPHILS # (AUTO) 5.1 10^3/uL (1.8-7.8); NEUTROPHILS % (AUTO) 50 % (42-75); PLATELET COUNT 166 10^3/uL (130-400); WHITE BLOOD COUNT 10.2 10^3/uL (4.3-11.0)
[2023-03-02 09:30] VITALS: BP 120/63
[2023-03-02] MEDS: DOCUSATE SODIUM 100 MG CAPSULE PO SCH (09:47)
[2023-03-02] MEDS: PRENATAL VITAMIN TABLET PO SCH (09:47)
--- NOTE | 2023-03-02 11:04 | Discharge Summary ---
Discharge Summary Hospital Course Hospital Course Date of Admission: Feb 28, 2023 at 17:44 Admission Diagnosis : Family Physician/Provider: Kirstin Perrin MD Date of Discharge: 03/02/23 Discharge Diagnosis: s/p spontaneous vaginal delivery Hospital Course: Pt admitted in early labor and had augmentation with AROM due to non-reassuring heart tones. Unremarkable labor, delivery and course. Labs and Pending Lab Test: Laboratory Tests 03/02/23 06:10: White Blood Count 10.2, Red Blood Count 3.59L, Hemoglobin 11.4L, Hematocrit 34L, Mean Corpuscular Volume 95, Mean Corpuscular Hemoglobin 32, Mean Corpuscular Hemoglobin Concent 33, Red Cell Distribution Width 12.6, Platelet Count 166, Mean Platelet Volume 10.9, Immature Granulocyte % (Auto) 1, Neutrophils (%) (Auto) 50, Lymphocytes (%) (Auto) 39, Monocytes (%) (Auto) 8, Eosinophils (%) (Auto) 3, Basophils (%) (Auto) 1, Neutrophils # (Auto) 5.1, Lymphocytes # (Auto) 3.9, Monocytes # (Auto) 0.8, Eosinophils # (Auto) 0.3, Basophils # (Auto) 0.1, Immature Granulocyte # (Auto) 0.1 Microbiology 02/28/23 Urine Culture - Final, Complete >=3 Gram Positive Isolates Home Meds Active Ibu (Ibuprofen) 600 Mg Tablet 600 Mg PO Q6HR PRN Reported Acid Ear Mold Laboratory Technician (FAMOTIDINE) (Famotidine) 20 Mg Tablet 20 Mg PO HS PRN Cetirizine HCl 10 Mg Tablet 10 Mg PO Vitamin Tablet ( Vit No.124/Iron/FA) 1 Each Tablet 1 Each PO Assessment/Pt DC Instructions Follow up with Dr. Perrin in 6 weeks for visit. Discharge Diet: No Restrictions Activity as Tolerated: Yes (avoid strenuous activity x 6 weeks) Discharge Physical Examination Allergies: Coded Allergies: No Known Drug Allergies (Unverified , 12/05/20) General Appearance: No Apparent Distress Respiratory: Lungs Clear Cardiovascular: Regular Rate, Rhythm, No Murmur Gastrointestinal: Other (fundus firm below umbilicus) Extremity: No Pedal Edema Skin: Warm/Dry Neurologic/Psychiatric: Alert, Normal Mood/Affect KIRSTIN PERRIN MD Mar 02, 2023 11:04
[2023-03-02 14:20] VITALS: BP 120/63
== END 2023-03-02 14:20 | disposition home or self-care (01) | DRG 807 ==
LOC: LDRP 14:04 → WSo 14:04 → LDRP 17:44
PROVIDERS: ADMIT Family Medicine; ATTEND Family Medicine
PROC: 10E0XZZ Delivery of Products of Conception, External Approach (ICD-10-PCS; principal; 2023-03-01)
DX: O99.824 Streptococcus B carrier state complicating childbirth (principal); Z37.0 Single live birth; Z3A.38 38 weeks gestation of pregnancy; O71.82 Other specified trauma to perineum and vulva
CPT/HCPCS: 36415; 81000; 85025; 86780; 86850; 86900; 86901; 87088; 96360; 99213